=== PATIENT | female | born 1940 | race Two or more races ===

== ENCOUNTER 2016-05-17 14:44 | Emergency (ER) | payer MEDICARE, BC ==
[~2016-05-17] VITALS: Ht 165.1 cm; Wt 66.0 kg
[~2016-05-17 14:44] MED LIST: B-COTAB41 PO; BONI150T PO; CALC-131 PO; DIAZ5 PO; DOXE10CA PO; TAB-TAB PO; THIO2 PO; TRIH2 PO; XANA2TAB2 PO
[2016-05-17 14:54] VITALS: BP 133/80; PULSE 79; RESP 16; TEMP 98.8; O2SAT 98
[2016-05-17] MEDS ORDERED: XANA2TAB2 PO (15:10)
[2016-05-17] MEDS ORDERED: ARTANE PO (15:10)
[2016-05-17] MEDS ORDERED: DONE1TAB90 PO (15:10)
[2016-05-17] MEDS ORDERED: DIAZ5 PO (15:10)
[2016-05-17] MEDS ORDERED: [UNRECOGNIZED DRUG - REMARK] PO (15:10)
[2016-05-17] MEDS ORDERED: NAVANE PO (15:10)
[2016-05-17] MEDS ORDERED: SODIUM CHLORIDE 0.9% FLUSH 5 ML FLUSH IVF PRN (15:30)
[2016-05-17 15:43] LABS: AUTOMATED NEUTROPHIL # 3.3 TH/MM3 (1.8-7.7); BASOPHIL # 0.1 TH/MM3 (0-0.2); BASOPHIL % 1.1 % (0.0-2.0); EOSINOPHIL # 0.1 TH/MM3 (0-0.4); EOSINOPHIL % 1.7 % (0.0-4.0); HEMATOCRIT 38.8 % (35.0-46.0); HEMO FLAGS DIFF FINAL; LYMPH % 29.5 % (9.0-44.0); LYMPHOCYTE # 1.7 TH/MM3 (1.0-4.8); MEAN CELL VOLUME 88.1 FL (80.0-100.0); MEAN CORPUSCULAR HEMOGLOBIN 29.5 PG (27.0-34.0); MEAN CORPUSCULAR HGB CONC 33.5 % (32.0-36.0); MONO % 9.4 % (0.0-8.0); NEUT % 58.3 % (16.0-70.0); PLATELET COUNT 186 TH/MM3 (150-450); RED CELL DISTRIBUTION WIDTH 13.1 % (11.6-17.2); WHITE BLOOD COUNT 5.7 TH/MM3 (4.0-11.0)
[2016-05-17 15:45] VITALS: O2SAT 98
[2016-05-17 15:51] LABS: CHLORIDE 107 MEQ/L (98-107); POTASSIUM 3.9 MEQ/L (3.5-5.1); SODIUM (NA) 142 MEQ/L (136-145)
--- NOTE | 2016-05-17 15:52 | PD ---
HPI Chief Complaint: Dizziness Time Seen by Provider: 15:10 Travel History International Travel<30 days: No Contact w/Intl Traveler<30days: No Traveled to known affect area: No History of Present Illness HPI This is a 75-year-old male who presents to the emergency department with dizziness that's been going on for 1 week described as lightheadedness, feeling like she is going to pass out, intermittent. The patient feels generally fatigued and weak. Her reports that she was walking yesterday and she said she felt like she was going to pass out. She's not lost consciousness in the setting of these symptoms. Her doctor said recently been making changes to her benzodiazepines. She was being tapered off of Valium but then she didn't feel well so her primary care doctor started her back done several days ago. She thinks it probably has to do with her Valium. She went to [facility] and checked her blood pressure prior to arrival and her systolic blood pressure was 190. The pharmacist at [facility] told her to go to her primary care physician. Her primary care physician told her to come to the emergency department which is how she ended up here. She denies any chest pain or trouble breathing. She denies any dysuria, frequency or urgency. PFSH Past Medical History Heart Rhythm Problems: No Cancer: No Cardiac Catheterization: No Cardiovascular Problems: No High Cholesterol: No Congestive Heart Failure: No Diabetes: No Diminished Hearing: No Endocrine: No Genitourinary: Yes (BLADDER DOES NOT EMPTY COMPLETELY) Hepatitis: No Hiatal Hernia: No Hypertension: No Immune Disorder: No Musculoskeletal: Yes (KNEE) Neurologic: No Psychiatric: Yes (SCHIZOPHRENIA, ANXIETY "HEAR VOICES") Reproductive: No Respiratory: No Myocardial Infarction: No Schizophrenia: Yes Thyroid Disease: No Tetanus Vaccination: < 5 Years Influenza Vaccination: Yes ?: Not Miscarriage: 1 Past Surgical History Coronary Artery Bypass Graft: No Genitourinary Surgery: Yes (BLADDER STIMULATOR IMPLANTED AND REMOVED ) Gynecologic Surgery: Yes (D&C) Other Surgery: Yes (BREAST IMPLANTS PUT IN 1988; IMPLANTS REMOVED IN 2005) Family History Family Myocardial Infarction: Yes Social History Alcohol Use: Yes (OCCASIONAL GLASS OF WINE) Tobacco Use: No Substance Use: No Allergies-Medications (Allergen,Severity, Reaction): Coded Allergies: Darvocet-N 100 (Verified Allergy, Severe, vomiting, 05/17/16) Ibuprofen (Verified Allergy, Severe, SYNCOPY, 05/17/16) Tylenol (Verified Allergy, Severe, syncopy, 05/17/16) Reported Meds & Prescriptions Reported Meds & Active Scripts Active Reported Donepezil Hydrochloride 5 Mg Tab 1 Tab PO DAILY Valium (Diazepam) 5 Mg Tab 5 Mg PO BID Xanax (Alprazolam) 2 Mg Tab 2 Mg PO HS [Ceneguan] 10 Mg PO BID [Artane] 2 Mg PO BID [Navane] 2 Mg PO BID Review of Systems Except as stated in HPI: all other systems reviewed are Neg Physical Exam Narrative GENERAL:Well appearing, no acute distress SKIN: Warm and dry. HEAD: Atraumatic. Normocephalic. EYES: Pupils equal and round. No injection or drainage. ENT: Moist mucous membranes NECK: Trachea midline. CARDIOVASCULAR: Regular rate and rhythm. 3/6 systolic murmur heard over the right upper sternal border RESPIRATORY: Clear to auscultation. Breath sounds equal bilaterally. GASTROINTESTINAL: Abdomen soft, non-tender, nondistended. MUSCULOSKELETAL: No obvious deformities. NEUROLOGICAL: Awake and alert. No obvious cranial nerve deficits. Moving all extremities. No dysarthria or aphasia. PSYCHIATRIC: Appropriate mood and affect; insight and judgment normal. Data Data Last Documented VS Vital Signs Date Time Temp Pulse Resp B/P Pulse Ox O2 Delivery O2 Flow Rate FiO2 05/17/16 15:45 98 Room Air 05/17/16 14:54 98.8 79 16 133/80 Orders Electrocardiogram (05/17/16 15:25) Complete Blood Count With Diff (05/17/16 15:25) Comprehensive Metabolic Panel (05/17/16 15:25) Magnesium (Mg) (05/17/16 15:25) Troponin I (05/17/16 15:25) Urinalysis - C+S If Indicated (05/17/16 15:25) Ecg Monitoring (05/17/16 15:25) Iv Access Insert/Monitor (05/17/16 15:25) Oximetry (05/17/16 15:25) Sodium Chloride 0.9% Flush (Ns Flush) (05/17/16 15:30) Cath For Specimen (05/17/16 15:25) Thyroid Stimulating Hormone (05/17/16 15:25) Labs Laboratory Tests Test 05/17/16 15:30 White Blood Count 5.7 TH/MM3 Red Blood Count 4.40 MIL/MM3 Hemoglobin 13.0 GM/DL Hematocrit 38.8 % Mean Corpuscular Volume 88.1 FL Mean Corpuscular Hemoglobin 29.5 PG Mean Corpuscular Hemoglobin 33.5 % Concent Red Cell Distribution Width 13.1 % Platelet Count 186 TH/MM3 Mean Platelet Volume 8.2 FL Neutrophils (%) (Auto) 58.3 % Lymphocytes (%) (Auto) 29.5 % Monocytes (%) (Auto) 9.4 % Eosinophils (%) (Auto) 1.7 % Basophils (%) (Auto) 1.1 % Neutrophils # (Auto) 3.3 TH/MM3 Lymphocytes # (Auto) 1.7 TH/MM3 Monocytes # (Auto) 0.5 TH/MM3 Eosinophils # (Auto) 0.1 TH/MM3 Basophils # (Auto) 0.1 TH/MM3 CBC Comment DIFF FINAL Differential Comment Sodium Level 142 MEQ/L Potassium Level 3.9 MEQ/L Chloride Level 107 MEQ/L Carbon Dioxide Level 26.7 MEQ/L Anion Gap 8 MEQ/L Blood Urea Nitrogen 16 MG/DL Creatinine 0.83 MG/DL Estimat Glomerular Filtration 67 ML/MIN Rate Random Glucose 100 MG/DL Calcium Level 8.7 MG/DL Magnesium Level 2.3 MG/DL Total Bilirubin 0.3 MG/DL Aspartate Amino Transf 17 U/L (AST/SGOT) Alanine Aminotransferase 22 U/L (ALT/SGPT) Alkaline Phosphatase 52 U/L Troponin I LESS THAN 0.02 NG/ML Total Protein 6.8 GM/DL Albumin 3.8 GM/DL [facility] Medical Decision Making Medical Screen Exam Complete: Yes Emergency Medical Condition: Yes Interpretation(s) EKG: Normal sinus rhythm with no ST changes Differential Diagnosis Electrolyte abnormality, urinary tract infection, arrhythmia, acute coronary syndrome, dehydration, medication side effect Narrative Course This is a 75-year-old female who presents to the emergency department with dizziness and lightheadedness that's been going on for 1 week. She has a normal neurologic exam. There have been some recent changes to her benzodiazepines recently which may be the etiology of her symptoms. She is placed in a monitor and an IV was established. Plan for blood work. EKG is reassuring. Patient does have a heart murmur on exam. This is possibly related to her symptoms. Think it's reasonable for her to obtain an echo as an outpatient. Dr. Kwon will follow-up on her blood work. I think patient can be discharged if it's all reassuring and follow-up with her primary care physician. Hailee Bettencourt MD May 17, 2016 15:52
[2016-05-17 15:54] LABS: ANION GAP 8 MEQ/L (5-15); BICARBONATE 26.7 MEQ/L (21.0-32.0); MAGNESIUM 2.3 MG/DL (1.5-2.5)
[2016-05-17 15:55] LABS: BLOOD UREA NITROGEN 16 MG/DL (7-18)
[2016-05-17 15:57] LABS: ALT (GPT) 22 U/L (10-53); AST (GOT) 17 U/L (15-37)
[2016-05-17 15:58] LABS: GLOMERULAR FILTRATION RATE 67 ML/MIN (>89)
[2016-05-17 15:59] LABS: TOTAL BILIRUBIN ADULT 0.3 MG/DL (0.2-1.0)
[2016-05-17 16:00] LABS: ALKALINE PHOSPHATASE 52 U/L (45-117)
--- NOTE | 2016-05-17 16:10 | PD ---
Physical Exam Date Seen by Provider: May 17, 2016 Time Seen by Provider: 16:08 Narrative The patient is a 75-year-old female was initially evaluated by the previous physician, Dr. Bettencourt. Please refer to the initial history, physical, diagnostic evaluation, and treatment modality plan. The patient was signed out at 4 PM laboratory evaluation and UA pending. Per the previous physician, the patient to be discharged home if laboratory evaluation is unremarkable. Data Data Last Documented VS Vital Signs Date Time Temp Pulse Resp B/P Pulse Ox O2 Delivery O2 Flow Rate FiO2 05/17/16 16:28 73 18 150/81 97 Room Air 05/17/16 14:54 98.8 Orders Electrocardiogram (05/17/16 15:25) Complete Blood Count With Diff (05/17/16 15:25) Comprehensive Metabolic Panel (05/17/16 15:25) Magnesium (Mg) (05/17/16 15:25) Troponin I (05/17/16 15:25) Urinalysis - C+S If Indicated (05/17/16 15:25) Ecg Monitoring (05/17/16 15:25) Iv Access Insert/Monitor (05/17/16 15:25) Oximetry (05/17/16 15:25) Sodium Chloride 0.9% Flush (Ns Flush) (05/17/16 15:30) Cath For Specimen (05/17/16 15:25) Thyroid Stimulating Hormone (05/17/16 15:25) Labs Laboratory Tests Test 05/17/16 05/17/16 15:30 16:10 White Blood Count 5.7 TH/MM3 Red Blood Count 4.40 MIL/MM3 Hemoglobin 13.0 GM/DL Hematocrit 38.8 % Mean Corpuscular Volume 88.1 FL Mean Corpuscular Hemoglobin 29.5 PG Mean Corpuscular Hemoglobin 33.5 % Concent Red Cell Distribution Width 13.1 % Platelet Count 186 TH/MM3 Mean Platelet Volume 8.2 FL Neutrophils (%) (Auto) 58.3 % Lymphocytes (%) (Auto) 29.5 % Monocytes (%) (Auto) 9.4 % Eosinophils (%) (Auto) 1.7 % Basophils (%) (Auto) 1.1 % Neutrophils # (Auto) 3.3 TH/MM3 Lymphocytes # (Auto) 1.7 TH/MM3 Monocytes # (Auto) 0.5 TH/MM3 Eosinophils # (Auto) 0.1 TH/MM3 Basophils # (Auto) 0.1 TH/MM3 CBC Comment DIFF FINAL Differential Comment Sodium Level 142 MEQ/L Potassium Level 3.9 MEQ/L Chloride Level 107 MEQ/L Carbon Dioxide Level 26.7 MEQ/L Anion Gap 8 MEQ/L Blood Urea Nitrogen 16 MG/DL Creatinine 0.83 MG/DL Estimat Glomerular Filtration 67 ML/MIN Rate Random Glucose 100 MG/DL Calcium Level 8.7 MG/DL Magnesium Level 2.3 MG/DL Total Bilirubin 0.3 MG/DL Aspartate Amino Transf 17 U/L (AST/SGOT) Alanine Aminotransferase 22 U/L (ALT/SGPT) Alkaline Phosphatase 52 U/L Troponin I LESS THAN 0.02 NG/ML Total Protein 6.8 GM/DL Albumin 3.8 GM/DL Thyroid Stimulating Hormone 0.464 uIU/ML 3rd Gen Urine Collection Type CLEAN CATCH Urine Color YELLOW Urine Turbidity CLEAR Urine pH 6.5 Urine Specific Orwell 1.009 Urine Protein NEG mg/dL Urine Glucose (UA) NEG mg/dL Urine Ketones NEG mg/dL Urine Occult Blood NEG Urine Nitrite NEG Urine Bilirubin NEG Urine Leukocyte Esterase NEG Urine RBC 0-3 /hpf Urine WBC 0-2 /hpf Urine Squamous Epithelial 0-5 /hpf Cells Microscopic Urinalysis Comment CULT NOT INDICATED Urine Collection Time 16:10 MDM Medical Record Reviewed: Yes Supervised Visit with AMBER: No Interpretation(s) EKG reveals normal sinus rhythm with a rate of 65. No ischemic changes or ectopy noted. Laboratory Tests Test 05/17/16 05/17/16 15:30 16:10 White Blood Count 5.7 TH/MM3 Red Blood Count 4.40 MIL/MM3 Hemoglobin 13.0 GM/DL Hematocrit 38.8 % Mean Corpuscular Volume 88.1 FL Mean Corpuscular Hemoglobin 29.5 PG Mean Corpuscular Hemoglobin 33.5 % Concent Red Cell Distribution Width 13.1 % Platelet Count 186 TH/MM3 Mean Platelet Volume 8.2 FL Neutrophils (%) (Auto) 58.3 % Lymphocytes (%) (Auto) 29.5 % Monocytes (%) (Auto) 9.4 % Eosinophils (%) (Auto) 1.7 % Basophils (%) (Auto) 1.1 % Neutrophils # (Auto) 3.3 TH/MM3 Lymphocytes # (Auto) 1.7 TH/MM3 Monocytes # (Auto) 0.5 TH/MM3 Eosinophils # (Auto) 0.1 TH/MM3 Basophils # (Auto) 0.1 TH/MM3 CBC Comment DIFF FINAL Differential Comment Sodium Level 142 MEQ/L Potassium Level 3.9 MEQ/L Chloride Level 107 MEQ/L Carbon Dioxide Level 26.7 MEQ/L Anion Gap 8 MEQ/L Blood Urea Nitrogen 16 MG/DL Creatinine 0.83 MG/DL Estimat Glomerular Filtration 67 ML/MIN Rate Random Glucose 100 MG/DL Calcium Level 8.7 MG/DL Magnesium Level 2.3 MG/DL Total Bilirubin 0.3 MG/DL Aspartate Amino Transf 17 U/L (AST/SGOT) Alanine Aminotransferase 22 U/L (ALT/SGPT) Alkaline Phosphatase 52 U/L Troponin I LESS THAN 0.02 NG/ML Total Protein 6.8 GM/DL Albumin 3.8 GM/DL Thyroid Stimulating Hormone 0.464 uIU/ML 3rd Gen Urine Collection Type CLEAN CATCH Urine Color YELLOW Urine Turbidity CLEAR Urine pH 6.5 Urine Specific Orwell 1.009 Urine Protein NEG mg/dL Urine Glucose (UA) NEG mg/dL Urine Ketones NEG mg/dL Urine Occult Blood NEG Urine Nitrite NEG Urine Bilirubin NEG Urine Leukocyte Esterase NEG Urine RBC 0-3 /hpf Urine WBC 0-2 /hpf Urine Squamous Epithelial 0-5 /hpf Cells Microscopic Urinalysis Comment CULT NOT INDICATED Urine Collection Time 16:10 Differential Diagnosis Differential diagnoses includes hypertension, hypertensive urgency, hypertensive emergency, medication side effect, orthostatic hypotension, UTI, dehydration, aortic stenosis, arrhythmia. Narrative Course The patient was initially evaluated by the previous physician. Please refer to the initial history, physical, diagnostic evaluation, treatment modality plan. The patient was signed out at 4 PM with laboratory evaluation including UA pending. The patient's CBC, CMP, and troponin are unremarkable. The patient's EKG is unremarkable. The patient's UA is negative. I reevaluated the patient, she is currently asymptomatic. Her dizziness is intermittent, feels like it is a "chemical imbalance", within the brain. The patient denies any current exertional symptoms, chest pain, or shortness of breath. The patient's psychiatrist is Dr. Bowden and her primary physician is Dr. Huber. The patient is advised to follow-up with her primary physician, she may benefit from outpatient echocardiogram and/or Holter monitor if symptoms persist. Patient is nonfocal on exam, I do not believe this is acute CVA. Diagnosis Primary Impression: Dizziness Patient Instructions: General Instructions Additional Instruction: Follow-up with her primary physician, you may benefit from outpatient echocardiogram and/or Holter monitor. Return if symptoms worsen or progress. Monitor blood pressure daily. Disposition: 01 DISCHARGE HOME Condition: Stable Phan Kwon MD May 17, 2016 16:10
[2016-05-17 16:19] LABS: BLOOD, URINE NEG (NEG); GLUCOSE,URINE NEG (NEG); KETONE, URINE NEG (NEG); NITRITE,URINE NEG (NEG); PH, URINE 6.5 (5.0-8.5)
[2016-05-17 16:28] VITALS: BP 150/81; PULSE 73; RESP 18; O2SAT 97
[2016-05-17 16:41] LABS: COMMENT (UR) CULT NOT INDICATED; CULTURE IF INDICATED CULT NOT INDICATED; METHOD OF COLLECTION CLEAN CATCH; RBC, URINE 0-3 /hpf (0-3); SQUAMOUS EPITHELIAL CELL URINE 0-5 /hpf (0-5); URINE COLOR YELLOW (YELLW/STRAW); WBC, URINE 0-2 /hpf (0-5)
--- NOTE | 2016-05-18 23:58 | EKG ---
Date Performed: 05/17/2016 Time Performed: 15:47:54 PTAGE: 75 years EKG: Sinus rhythm Normal ECG PREVIOUS TRACING : 09/23/2015 10.45 Compared to prior tracing no significant change DOCTOR: Edmundo George Interpretating Date/Time 05/18/2016 23:58:04
== END 2016-05-17 17:18 | disposition home or self-care (01) ==
LOC: PHED 14:44
DX: R42 Dizziness and giddiness (principal); R53.83 Other fatigue; R53.1 Weakness; R01.1 Cardiac murmur, unspecified; Z79.899 Other long term (current) drug therapy; Z87.448 Personal history of other diseases of urinary system; Z87.39 Personal history of other diseases of the musculoskeletal system and connective tissue; Z86.59 Personal history of other mental and behavioral disorders
CPT/HCPCS: 80053; 81001; 83735; 84443; 84484; 85025; 93005